=== PATIENT | male | born 1970 | race Caucasian/White ===

== ENCOUNTER → 2017-08-12 | Outpatient (CLI) | payer BC ==
[~2017-08-12] MED LIST: ACET-1256 PO; ASPCH81X PO; DICY10CA55 PO
[2017-08-12 09:37] LABS: BASO % 0.5 %; BASO ABS # 0.03 K/uL (0-0.2); EOS % 2.2 %; EOS ABS # 0.13 K/uL (0-0.5); HEMOGLOBIN 15.3 g/dL (14.0-18.0); IG# 0.01 K/uL (0.00-0.02); LYMPH % 30.1 %; LYMPH ABS # 1.74 K/uL (1.2-3.4); MEAN CELL VOLUME 86.2 fL (80-100); MEAN CORPUSCULAR HEMOGLOBIN 29.3 pg (25-34); MEAN PLATELET VOLUME 10.2 fL (7.4-10.4); MONO % 7.6 %; MONO ABS # 0.44 K/uL (0.11-0.59); NEUT % 59.4 %; NEUT ABS # 3.43 K/uL (1.4-6.5); PLATELET COUNT 240 K/uL (130-400); RED CELL DISTRIBUTION WIDTH CV 13.2 % (11.5-14.5); RED CELL DISTRIBUTION WIDTH SD 41.6 fL (36.4-46.3); WHITE BLOOD COUNT 5.78 K/uL (4.8-10.8)
[2017-08-12 09:52] LABS: ALBUMIN 4.1 gm/dl (3.4-5.0); BLOOD UREA NITROGEN 16 mg/dl (7-18); CALCIUM 8.9 mg/dl (8.5-10.1); CARBON DIOXIDE 30 mmol/L (21-32); CREATININE 0.99 mg/dl (0.60-1.40); GLUCOSE 87 mg/dl (70-99); POTASSIUM 4.2 mmol/L (3.5-5.1); SODIUM 139 mmol/L (136-145)
[2017-08-12 09:55] LABS: ALKALINE PHOSPHATASE 59 U/L (45-117); ALT/SGPT 47 U/L (12-78); AST/SGOT 17 U/L (15-37); CHOLESTEROL 164 mg/dl (0-200); LDL CHOLESTEROL CALCULATED 81 mg/dl; TOTAL PROTEIN 7.3 gm/dl (6.4-8.2)
[2017-08-12 10:08] LABS: HEMOGLOBIN A1C 5.7 % (4.5-5.6)
== END | disposition home or self-care (01) ==
LOC: C.LAB1850 07:04
PROVIDERS: ATTEND Neuromusculoskeletal Medicine & OMM
DX: R73.03 Prediabetes (principal); E78.5 Hyperlipidemia, unspecified